=== PATIENT | male | born 1985 | race Caucasian/White ===

== ENCOUNTER 2019-03-29 20:58 | Emergency (ER) | payer MEDICAID ==
--- NOTE | 2019-03-29 22:35 | EDM.PDOC ---
ED HPI GENERAL MEDICAL PROBLEM - General Chief Complaint: Bite:Animal, Insect Stated Complaint: BITE FROM TICK Time Seen by Provider: 03/29/19 22:20 Source of Information: Reports: Patient History Limitations: Reports: No Limitations - History of Present Illness INITIAL COMMENTS - FREE TEXT/NARRATIVE: 33-year-old male with chronic anxiety, was bit by a tick on his lower right leg month ago and a coworker just developed Lyme's disease and it made him anxious so he came in to talk about whether he has Lyme's disease. He has occasional generalized achiness but no fever, no rashes, no joint pains. Onset: Gradual Location: Reports: Lower Extremity, Right Associated Symptoms: Reports: Other (Mild generalized stiffness intermittently) . Denies: Chest Pain, Fever/Chills, Loss of Appetite, Malaise, Nausea/Vomiting , Weakness Generalized Pain Score (Numeric/FACES): 5 - Related Data Allergies Allergy/AdvReac Type Severity Reaction Status Date / Time No Known Allergies Allergy Verified 03/29/19 22:17 Home Meds: Home Meds buPROPion [Wellbutrin] 75 mg PO PCLUNCH 03/29/19 [History] buPROPion [Wellbutrin] 150 mg PO DAILY 03/29/19 [History] Past Medical History Psychiatric History: Reports: Anxiety Social & Family History - Tobacco Use Smoking Status *Q: Current Every Day Smoker Years of Tobacco use: 20 Packs/Tins Daily: 0.5 - Caffeine Use Caffeine Use: Reports: Coffee, Soda - Recreational Drug Use Recreational Drug Use: Yes Drug Use in Last 12 Months: Yes Recreational Drug Type: Reports: Amphetamines (Speed) ED ROS GENERAL - Review of Systems Review Of Systems: See Below Constitutional: Denies: Fever, Chills HEENT: Reports: No Symptoms Respiratory: Reports: No Symptoms GI/Abdominal: Reports: No Symptoms : Reports: No Symptoms Skin: Denies: Rash Neurological: Reports: No Symptoms ED EXAM, ANIMAL BITE - Physical Exam Exam: See Below Exam Limited By: No Limitations General Appearance: Alert, No Apparent Distress Head: Atraumatic Respiratory/Chest: No Respiratory Distress Extremities: Other (Exam of the lower extremity shows no evidence of previous bites or rashes) Neurological: Alert, Oriented Psychiatric: Anxious Course - Vital Signs Last Recorded V/S: Last Vital Signs Temp 97.3 F 03/29/19 22:21 Pulse 100 08/03/19 22:21 Resp 20 03/29/19 22:21 BP 129/77 03/29/19 22:21 Pulse Ox 100 03/29/19 22:21 - Re-Assessments/Exams Free Text/Narrative Re-Assessment/Exam: 03/29/19 22:33 Apparently the tick was only on the patient for a short time when he pulled it off and there was no engorgement. He was reassured that this is very unlikely to cause disease, and if he develops no further symptoms he should be fine. He can recheck if he develops fever, increased joint pains or rash. Departure - Departure Time of Disposition: 22:38 Disposition: Home, Self-Care 01 Clinical Impression: Tick bite of right lower leg - Discharge Information Instructions: Tick Bite Information, Adult, [id number] Referrals: PCP,None [Primary Care Provider] - Forms: ED Department Discharge Care Plan Goals: Wear insect repellent if exposed to ticks, and remove them as soon as possible. Return for recheck if you develop fever, increased joint pains or swelling.
== END 2019-03-29 22:39 | disposition home or self-care (01) ==
LOC: JP.ED 20:58
DX: S80.861A Insect bite (nonvenomous), right lower leg, initial encounter (principal); F17.210 Nicotine dependence, cigarettes, uncomplicated; F41.9 Anxiety disorder, unspecified; Z79.899 Other long term (current) drug therapy; W57.XXXA Bitten or stung by nonvenomous insect and other nonvenomous arthropods, initial encounter
CPT/HCPCS: 99281; 99282

== ENCOUNTER 2023-07-23 13:26 | Emergency (ER) | payer BC, MEDICAID ==
[2023-07-23 15:05] LABS: APPEARANCE,URINE SLIGHTLY CLOUDY (CLEAR); BILIRUBIN,URINE NEGATIVE (NEGATIVE); COLOR,URINE YELLOW (YELLOW); GLUCOSE,URINE NEGATIVE (NEGATIVE); KETONES,URINE NEGATIVE (NEGATIVE); LEUKOCYTE ESTERASE,URINE NEGATIVE (NEGATIVE); NITRITE,URINE NEGATIVE (NEGATIVE); OCCULT BLOOD,URINE NEGATIVE (NEGATIVE); PROTEIN,URINE NEGATIVE (NEGATIVE); UROBILINOGEN,URINE 0.2 EU/dL (0.2-1.0)
[2023-07-23 15:08] LABS: BACTERIA,URINE RARE; EPITHELIAL CELLS,URINE RARE; RBC,URINE NOT SEEN (0-5); WBC,URINE 0-5 (0-5)
[2023-07-23 15:09] LABS: AMORPHOUS SEDIMENT,URINE NOT SEEN; MUCUS,URINE NOT SEEN
== END 2023-07-23 16:43 | disposition home or self-care (01) ==
LOC: JP.ED 13:26
DX: N45.1 Epididymitis (principal); N43.3 Hydrocele, unspecified; Z79.899 Other long term (current) drug therapy
CPT/HCPCS: 76870; 76870-26; 81001; 93976; 93976-26; 99284

== ENCOUNTER 2023-09-04 10:35 | Emergency (ER) | payer MEDICAID ==
[2023-09-04 11:27] LABS: BASOPHILS PERCENT AUTO 0.4 % (0.1-1.3); EOSINOPHILS ABSOLUTE AUTO 0.64 K/uL (0.00-0.40); EOSINOPHILS PERCENT AUTO 12.1 % (0.0-5.4); HEMATOCRIT 38.3 % (38.4-49.7); HEMOGLOBIN 13.1 g/dL (12.9-16.9); IMMATURE GRAN PERCENT AUTO 0.2 % (0.0-0.7); LYMPHOCYTES ABSOLUTE AUTO 1.72 K/uL (0.8-3.3); LYMPHOCYTES PERCENT AUTO 32.4 % (11.4-47.7); MEAN CORPUSCULAR HEMOGLOBIN 29.6 pg (31.6-35.5); MEAN CORPUSCULAR HGB CONC 34.2 g/dL (31.6-35.5); MEAN CORPUSCULAR VOLUME 86.5 fL (81.4-99.0); MONOCYTES ABSOLUTE AUTO 0.54 K/uL (0.20-0.90); MONOCYTES PERCENT AUTO 10.2 % (3.3-12.6); NEUTROPHILS ABSOLUTE AUTO 2.38 K/uL (1.0-7.6); NEUTROPHILS PERCENT AUTO 44.7 % (40.0-78.1); PLATELET COUNT,PLT 283 K/uL (130-375); RED BLOOD CELL COUNT 4.43 M/uL (4.14-5.76); WHITE BLOOD CELL COUNT,WBC 5.3 K/uL (3.2-11.0)
[2023-09-04 11:29] LABS: BASOPHILS ABSOLUTE AUTO 0.02 K/uL (0.00-0.10); IMMATURE GRAN ABSOLUTE AUTO 0.01 K/uL (0.00-0.23)
[2023-09-04] MEDS ORDERED: Magnesium Citrate Solution 296 ML Bottle PO ONE (11:39)
[2023-09-04 11:45] LABS: A/G RATIO 1.3 (1.2-2.2); ALANINE AMINOTRANSFERASE,ALT 31 U/L (12-78); ALBUMIN 4.2 g/dL (3.4-5.0); ALKALINE PHOSPHATASE 98 U/L (46-116); ASPARTATE AMNIOTRANSFERASE,AST 15 U/L (15-37); BILIRUBIN TOTAL 0.6 mg/dL (0.2-1.0); BLOOD UREA NITROGEN,BUN 19 mg/dL (7-18); CALCIUM 8.5 mg/dL (8.5-10.1); CARBON DIOXIDE,CO2 31 mmol/L (21-32); CHLORIDE,CL 100 mmol/L (100-108); CREATININE 1.1 mg/dL (0.8-1.3); EST CRCL DRUG DOSING (CG) 94.94 mL/min; ESTIMATED GFR 89 mL/min (>60); GLUCOSE RANDOM 102 mg/dL (74-106); POTASSIUM,K 4.3 mmol/L (3.6-5.2); PROTEIN TOTAL,TP 7.4 g/dL (6.4-8.2); SODIUM,NA 136 mmol/L (140-148)
[2023-09-04 11:48] LABS: ANION GAP 9.3 mmol/L (5.0-14.0)
[2023-09-04] MEDS ORDERED: Na Phos,M-B/Na Phos,DI-B 60 ML, Mineral Oil 50 ML, Docusate Sodium 400 MG, Magnesium Ci... RECTAL ONE ×4 (12:45)
== END 2023-09-04 13:46 | disposition home or self-care (01) ==
LOC: JP.ED 10:35
DX: K59.00 Constipation, unspecified (principal)
CPT/HCPCS: 36415; 74019; 80053; 83690; 85025; 99284; A9270

== ENCOUNTER 2023-09-21 06:33 | Day surgery (SDC) | payer MEDICAID ==
[2023-09-21] MEDS ORDERED: Propofol 200 MG/20 ML SDV ONE ×2 (07:15→07:41)
[2023-09-21] MEDS ORDERED: Midazolam 1 MG/ML 2 ML SDV ONE (07:15)
[2023-09-21] MEDS ORDERED: fentaNYL 50 MCG/ML SDV ONE (07:15)
[2023-09-21] MEDS ORDERED: Sodium Chloride 0.9% 1,000 ML IV SCH (07:30)
== END 2023-09-21 08:51 | disposition home or self-care (01) ==
LOC: JP.SDS 06:33
PROVIDERS: ATTEND Surgery
DX: K59.00 Constipation, unspecified (principal); F41.9 Anxiety disorder, unspecified; Z87.891 Personal history of nicotine dependence
CPT/HCPCS: 45378; J2250; J2704; J3010; J7030